=== PATIENT | female | born 1960 | race Caucasian/White ===

== ENCOUNTER → 2020-04-23 11:32 | Outpatient (CLI) | payer OTHER, SELFPAY ==
--- NOTE | ~2020-04-23 | XR_ITS ---
XR chest 2V DATE: 04/23/2020 11:48 INDICATION: Cough TECHNIQUE: 2 views COMPARISON: None FINDINGS: There is left ventricle enlargement. There is aortic ectasia, tortuosity. No hilar or media stinal enlargement. No pulmonary infiltrate or consolidation, pleural effusion or pulmonary vascular congestion or pneumo thorax. Diffuse osteopenia. IMPRESSION: Left ventricular enlargement Aortic ectasia and tortuosity No active pulmonary disease Reviewed, dictated and finalized at location B.
== END ==
PROVIDERS: PCP Family Medicine; Visit Provider Family Medicine
DX: R05 Cough (principal)
CPT/HCPCS: 71046

== ENCOUNTER 2020-05-29 14:41 | Outpatient (CLI) | payer OTHER, SELFPAY ==
--- NOTE | 2020-05-29 14:51 | ECHO_ITS ---
Patient Info Name: Aleksey Meredith Age: 59 years : 1960 Gender: Female Ht: 63 in Wt: 150 lbs BSA: 1.76 m2 HR: 110 bpm BP: 168 / 113 mmHg Heart Rhythm: Tachycardia Technical Quality: Fair Exam Date: 05/29/2020 3:10 PM Exam Location: [facility] Patient Status: Outpatient Admit Date: 05/29/2020 Staff Ordering Physician: Carolyn Chavez MD Piano Regulator Inspector: Nuno Quintanilla RDCS Attending Provider: Carolyn Chavez MD Referring Physician: Scott DUKE; Exam Type: CA echo doppler color flow Study Info Indications I51.7 - Cardiomegaly Complete two-dimensional, color flow and Doppler transthoracic echocardiogram is performed. History/Risk Factors Cardiomegaly, HTN. Summary 1. Complete two-dimensional, color flow and Doppler transthoracic echocardiogram is performed. 2. Left ventricular chamber dimension is normal. 3. Left ventricular systolic function is normal, estimated at 60-65%. 4. The left ventricular diastolic function is grade I diastolic dysfunction. 5. E/e' 5 is not elevated. 6. The aortic valve is not well visualized. 7. There is mild aortic valve stenosis based on a peak velocity of 168 cm/s, mean gradient of 6 mmHg, and aortic valve area of 1.8 cm2. Left Ventricle E/e' 5 is not elevated. Left ventricular chamber dimension is normal. Left ventricular systolic function is normal, estimated at 60-65%. The left ventricular diastolic function is grade I diastolic dysfunction. Right Ventricle Right ventricular chamber dimension is normal. Right ventricular systolic function is normal. Left Atria Left atrial chamber dimension is normal. Right Atria Right atrial chamber dimension is normal. Aortic Valve There is mild aortic valve stenosis based on a peak velocity of 168 cm/s, mean gradient of 6 mmHg, and aortic valve area of 1.8 cm2. Cannot determine number of aortic valve leaflets. The aortic valve is not well visualized. There is no aortic valve regurgitation. Pulmonic Valve There is no pulmonic regurgitation. Mitral Valve There is no mitral valve stenosis. There is no mitral valve regurgitation. Tricuspid Valve There is no tricuspid valve regurgitation. Pericardium/Pleural There is no pericardial effusion. Inferior Vena Cava Normal inferior vena cava with >50% collapse upon inspiration consistent with normal right atrial pressure, 5 mmHg. Aorta The aortic root size at the sinus of Valsalva is normal. Left Ventricular Outflow Tract Name Value Normal LVOT 2D LVOT Diameter 2.0 cm LVOT Doppler LVOT Peak Gradient 4 mmHg LVOT Mean Gradient 2 mmHg LVOT VTI 15 cm LVOT VTI/AV VTI Ratio 0.6 LVOT Stroke Volume 46 ml LVOT CO 5.0 l/min LVOT CI 2.8 l/min/m2 Mitral Valve Name Value Normal
== END 2020-05-29 14:42 | disposition home or self-care (01) ==
LOC: ANHCARD 14:43
PROVIDERS: PCP Family Medicine; Visit Provider Family Medicine
DX: I51.7 Cardiomegaly (principal); R05 Cough; I35.0 Nonrheumatic aortic (valve) stenosis; R00.2 Palpitations
CPT/HCPCS: 93306

== ENCOUNTER 2020-07-02 10:06 | Outpatient (CLI) | payer OTHER, SELFPAY ==
--- NOTE | ~2020-07-02 | MM_ITS ---
EXAMINATION: MM screening [facility] HISTORY: Screening TECHNIQUE: Craniocaudal and mediolateral oblique 3-D tomosynthesis images were obtained and synthetic 2-D images were generated. CAD analysis was submitted and interpreted. COMPARISON: Comparison to multiple prior studies sequentially, with oldest reviewed study dated 12/15. BREAST PARENCHYMAL COMPOSITION: There are scattered areas of fibroglandular density. FINDINGS: There is no evidence of suspicious mass, calcification, or architectural distortion to sugg est malignancy in either breast. There has been no suspicious interval change. IMPRESSION: 1. No mammographic evidence of malignancy. 2. Recommend routine screening mammography in one year. BI-RADS Category 1: Negative Reviewed, dictated and finalized at location A.
== END 2020-07-02 10:07 | disposition home or self-care (01) ==
LOC: ANHIMG 10:09
PROVIDERS: PCP Family Medicine; Visit Provider Family Medicine
DX: Z12.31 Encounter for screening mammogram for malignant neoplasm of breast (principal)
CPT/HCPCS: 77063; 77067

== ENCOUNTER 2021-07-30 15:18 | Outpatient (CLI) | payer OTHER, SELFPAY ==
--- NOTE | ~2021-07-30 | MM_ITS ---
EXAMINATION: MM screening [facility] HISTORY: Screening mammogram TECHNIQUE: Craniocaudal and mediolateral oblique 3-D tomosynthesis images were obtained and synthetic 2-D images were generated. CAD analysis was submitted and interpreted. COMPARISON: 07/02/2020, 01/31/2019, 01/19/2018 bilateral screening mammogram examinations BREAST PARENCHYMAL COMPOSITION: There are scattered areas of fibroglandular density. FINDINGS: There is no evidence of suspicious mass, calcification, or architectural distortion to sugg est malignancy in either breast. There has been no suspicious interval change. IMPRESSION: 1. No mammographic evidence of malignancy. 2. Recommend routine screening mammography in one year. BI-RADS Category 1: Negative Reviewed, dictated and finalized at location A. 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
== END 2021-07-30 15:19 | disposition home or self-care (01) ==
LOC: ANHIMG 15:19
PROVIDERS: PCP Family Medicine; Visit Provider Family Medicine
DX: Z12.31 Encounter for screening mammogram for malignant neoplasm of breast (principal)
CPT/HCPCS: 77063; 77067

== ENCOUNTER 2021-08-16 10:51 | Outpatient (CLI) | payer OTHER, SELFPAY ==
--- NOTE | ~2021-08-16 | DEXA_ITS ---
Bone Density Report Name: Aleksey Meredith Age: 61 Sex: Female Ethnicity: White Date of : 1960 Indication: osteopenia; height loss; postmenopausal Referring Provider: ARNOLD VALADEZ Study: Bone densitometry was performed. Exam Date: August 16, 2021 Accession number: [id number] Bone Density: Region BMD T-score Z-score Classification AP Spine (L1-L4) 0.824 -2.0 -0.4 Osteopenia Femoral Neck (Left) 0.668 -1.6 -0.2 Osteopenia Total Hip (Left) 0.801 -1.2 0.0 Osteopenia Total Hip Bilateral Avg 0.804 -1.2 0.0 Osteopenia Femoral Neck (Right) 0.642 -1.9 -0.5 Osteopenia Total Hip (Right) 0.806 -1.1 0.0 Osteopenia World Health Organization criteria for BMD impression classify patients as: Normal (T-score at or above -1.0), Osteopenia (T-score between -1.0 and -2.5), or Osteoporosis (T-score at or below -2.5). 10-year Fracture Risk(1): Major Osteoporotic Fracture 9.7% Hip Fracture 1.2% Reported Risk Factors: [place] (), Neck BMD=0.642, BMI=26.1 (1) FRAX(R) Version 3.08. Fracture probability calculated for an untreated patient. Fracture probability may be lower if the patient has received treatment. Previous Exams: Region Exam Age BMD T-score BMD Change BMD Change Date g/cm2 vs Baseline vs Previous AP Spine(L1-L4) 08/16/2021 61 0.824 -2.0 -0.095(-10.3%) -0.055(-6.2%)* 01/31/2019 58 0.879 -1.5 -0.040(-4.4%)# 0.080(9.9%)* 04/20/2015 54 0.800 -2.2 -0.120(-13.0%) -0.037(-4.4%)# 12/03/2012 52 0.837 -1.9 -0.083(-9.0%)# -0.063(-7.0%)# 10/02/2010 50 0.900 -1.3 -0.020(-2.1%) -0.020(-2.1%) 05/12/2008 47 0.919 -1.2 Total Hip(Left) 08/16/2021 61 0.801 -1.2 -0.021(-2.5%)# -0.018(-2.2%) 01/31/2019 58 0.820 -1.0 -0.003(-0.3%)# 0.049(6.4%)* 04/20/2015 54 0.770 -1.4 -0.052(-6.3%)# -0.032(-3.9%)# 12/03/2012 52 0.802 -1.1 -0.020(-2.5%)# -0.014(-1.7%)# 10/02/2010 50 0.816 -1.0 -0.006(-0.8%) -0.006(-0.8%) 05/12/2008 47 0.822 -1.0 Total Hip(Right) 08/16/2021 61 0.806 -1.1 -0.014(-1.7%)# -0.048(-5.6%)* 01/31/2019 58 0.853 -0.7 0.033(4.1%)# 0.035(4.3%)* 04/20/2015 54 0.818 -1.0 -0.002(-0.2%)# -0.024(-2.8%)# 12/03/2012 52 0.842 -0.8 0.022(2.7%)# 0.065(8.4%)# 10/02/2010 50 0.777 -1.4 -0.043(-5.2%)* -0.043(-5.2%)* 05/12/2008 47 0.820 -1.0 *Denotes significance at 95% confidence level, LSC for AP Spine = 0.022 g/cm2, LSC for Total Hip = 0.027 g/cm2 Clinical Information Provided by Patient:
== END 2021-08-16 10:52 | disposition home or self-care (01) ==
LOC: ANHIMG 10:51
PROVIDERS: PCP Family Medicine; Visit Provider Family Medicine
DX: Z78.0 Asymptomatic menopausal state (principal); M85.88 Other specified disorders of bone density and structure, other site; M85.852 Other specified disorders of bone density and structure, left thigh; M85.851 Other specified disorders of bone density and structure, right thigh
CPT/HCPCS: 77080

== ENCOUNTER 2022-08-22 10:10 | Emergency (ER) | payer OTHER, SELFPAY ==
--- NOTE | ~2022-08-22 | XR_ITS ---
EXAMINATION: XR chest 2V DATE: 08/22/2022 10:42 INDICATION: Cough. TECHNIQUE: Frontal and lateral views of the chest were obtained. COMPARISON: Chest 2 views 04/23/2020 FINDINGS: There is mild atelectasis in left lower lung zone. There are small pleural effusions. No pn eumothorax. Cardiomegaly is noted. IMPRESSION: 1. Small pleural effusions. 2. Cardiomegaly. Reviewed, dictated and finalized at location A. 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
[2022-08-22 10:19] VITALS: BP 159/91; PULSE 123; RESP 16; TEMP 36.6; O2SAT 99
--- NOTE | 2022-08-22 10:35 | ED.URI ---
HPI - URI/Sore Throat General Chief Complaint: Upper Respiratory Infection Stated Complaint: cold/flu Time Seen by Provider: 08/22/22 10:20 Source: patient Mode of arrival: ambulatory Limitations: no limitations History of Present Illness HPI Narrative: Ms. Jaiden coello is a 62-year-old female patient presenting to the clinic today with complaints nonproductive cough, yellow nasal drainage, sinus congestion and pain and fatigue for approximately 2 weeks. She reports initially in her illness that she had some fever and chills and some shortness of breath however this has improved. States she has had her flu shot this season. MD elicited complaint: cough, rhinorrhea, nasal congestion, sinus pain and other (Fatigue) Related Data Home Medications Medication Instructions Recorded Confirmed estradiol 10 mcg vaginal tablet 10 mcg vaginal 2XW 10/05/19 08/22/22 (Yuvafem) Allergies Allergy/AdvReac Type Severity Reaction Status Date / Time amlodipine Allergy Unknown Ankle edema Verified 08/22/22 10:27 hydrochlorothiazide AdvReac Intermediate polycythemia/ Verified 08/22/22 10:27 hemoconcentration quinapril AdvReac cough Verified 08/22/22 10:27 Review of Systems Review of Systems: Pertinent positives per HPI. Patient denies any fever, chills, rash, headache, visual changes, dizziness, shortness of breath, chest pain, palpitations, nausea, vomiting, diarrhea, constipation, abdominal pain, or any urinary issues. [facility] Family History Family History Grandparent Diabetes mellitus Mother Hypertension Family history of malignant neoplasm of brain Father Family history of lung cancer Social History Social History Smoking status: Never smoker Alcohol intake: current Substance use: never Comments At the time of my signature, I reviewed and agree with the nursing past medical, surgical, social, and family history. There is no relevant family history pertinent to the patient complaint. Exam Narrative: General: Well-developed, well nourished, in no apparent distress Head: Normocephalic, atraumatic Eyes: Pupils equally round and reactive to light bilaterally, EOM intact, sclera and conjunctive clear, no discharge, lids normal Ears: TMs intact and dull, ear canals clear, no drainage, grossly hearing normal. Nose: Nares patent, yellow nasal discharge, moderate inflammation, mild sinus tenderness. Mouth: Oral pharynx without lesions or masses, good dentition, MMM. Postnasal drip Neck: Supple, trachea midline, no enlargement of anterior or posterior cervical nodes, no thyroid masses or goiter palpable. Cardio: Regular rate and rhythm, s1 and s2 normal, no murmur appreciated. Resp: Clear to auscultation bilaterally, no rhonchi, rales, wheezing or rubs Course Course Emergency Course: Portions of this record may have been created with voice recognition software. Level of Care: Express Care Visit Vital Signs Vital signs: Vital Signs Temperature 36.6 C 08/22/22 10:19 Pulse Rate 123 H 08/22/22 10:19 Respiratory Rate 16 08/22/22 10:19 Blood Pressure 159/91 H 08/22/22 10:19 Pulse Oximetry 99 08/22/22 10:19 Temperature 36.6 C 08/22/22 10:19 Pulse Rate 123 H 08/22/22 10:19 Respiratory Rate 16 08/22/22 10:19 Blood Pressure 159/91 H 08/22/22 10:19 Pulse Oximetry 99 08/22/22 10:19 Vital signs reviewed MDM - URI/Sore Throat Differential Diagnosis Differential diagnosis: Likely sinusitis, viral infection, influenza and pharyngitis Discharge Plan Discharge Clinical Impression: Acute bacterial rhinosinusitis Patient Disposition: Home, Self-Care Condition: Stable Instructions: Antibiotic Form, Rhinosinusitis (ED) Additional Instructions: Take prescription medications only as prescribed-prednisone and Augmentin Increase fluids and stay well hydrated Tylen
== END 2022-08-22 10:55 | disposition home or self-care (01) ==
PROVIDERS: Emergency Provider Nurse Practitioner Family; PCP Family Medicine
DX: J01.90 Acute sinusitis, unspecified (principal); B96.89 Other specified bacterial agents as the cause of diseases classified elsewhere
CPT/HCPCS: 71046; 99213; G0463